=== PATIENT | male | born 1950 | race Caucasian/White ===

== ENCOUNTER 2021-01-22 21:50 | Emergency (ER) | payer MEDICAID, MEDICARE ==
[2021-01-22] MEDS ORDERED: EPINEPHrine 1:10,000 1 MG/10 ML Syringe IVPUSH ONE (22:04)
--- NOTE | 2021-01-22 22:19 | EDM.PDOC ---
ED HPI GENERAL MEDICAL PROBLEM - General Stated Complaint: CODE 100 Time Seen by Provider: 01/22/21 22:06 Source of Information: Reports: EMS, Family - History of Present Illness INITIAL COMMENTS - FREE TEXT/NARRATIVE: c/o sudden collapse pt arrived to ED in full cardiac arrest with Mekhi in progress, intubated and being bagged and IO in L pretib pt had c/o leg pain last 2 days, was home in his shop when he was witnessed to fall to the ground, hitting his head fairly hard on concrete, bystander CPR immediately begun 10 minutes later EMS took over CPR for about 25 minutes by the time pt arrived at ED pt attached to clinical research monitor by bystanders but no shock advised, EMS initially thought pt may have been in VT but no shock advised, then had occasional PVBs and thought to be in PEA pt given epi x 6 prior to arrival, another epi in ED pt with good BS b/l on arrival at ED however he had cardiac standstill on POCUS without even a quiver of cardiac movement midline abd u/s showed what appeared to be a normal diameter aorta from xiphoid down to below umbilicus pupils were 4/4 mm without any movement to light end CO2 initially 38, then dropped to upper teens daughter and her were at bedside within a few minutes after pt's arrival, they were updated as to the pt's status and absence of response to any resuscitative measures despite appropriate steps being taken chaplain Aj is on her way in daughter Shyla was a diploma pharmacy technician here at the hospital in the past labs and imaging were at bedside altho neither were obtained given his irreversible condition ED ROS GENERAL - Review of Systems Review Of Systems: Unable To Obtain Reason Not Obtained: in good baseline health per daughter ED EXAM, GENERAL - Physical Exam Exam: See Below Free Text/Narrative:: good BS b/l with bag ventilation, cardiac standstill on POCUS, carotid pulse with compression, good LV compression with Mekhi observed on POCUS, no peripheral edema, no chest scar (no CV hx per daughter) two abrasions at occiput: 4 x 4 cm and 3 x 3 cm, bony under abrasions is not mobile altho feels rather flat and a depressed skull fx may be present Course - Orders/Labs/Meds Meds: Medications Discontinued Medications Generic Name Dose Route Start Last Admin Trade Name Freq PRN Reason Stop Dose Admin Epinephrine HCl 1 mg 01/22/21 22:04 01/22/21 22:04 Epinephrine 1:10,000 1 Mg/10 Ml Syringe IVPUSH 01/22/21 22:05 1 mg ONETIME ONE Administration - Re-Assessments/Exams Free Text/Narrative Re-Assessment/Exam: 01/22/21 22:20 sudden collapse with apparent immediate asystole c/w massive CT, PE or pul event less likely, arrhythmia less likely as this would not have led to cardiac standstill in context of witnessed arrest and immediate resuscitative efforts Departure - Departure Time of Disposition: 22:11 Disposition: 20 Preliminary Cause of *Q: Cardiac Arrest Clinical Impression: Sudden cardiac arrest, Fall from standing, Blunt head trauma, Abrasion of occiput Referrals: PCP,None [Primary Care Provider] -
== END 2021-01-22 22:08 | disposition expired ==
LOC: FB.ED 22:06
DX: I46.9 Cardiac arrest, cause unspecified (principal); S00.81XA Abrasion of other part of head, initial encounter; W18.39XA Other fall on same level, initial encounter
CPT/HCPCS: 92950; 99285; J0171